=== PATIENT | male | born 1945 | race Caucasian/White ===

== ENCOUNTER → 2018-04-09 | Outpatient (CLI) | payer MEDICARE | END | disposition home or self-care (01) | LOC: SHCH 08:50 | PROVIDERS: ATTEND Internal Medicine Cardiovascular Disease | DX: I25.10 Atherosclerotic heart disease of native coronary artery without angina pectoris (principal) | CPT/HCPCS: 93880 ==

== ENCOUNTER → 2020-06-09 | Outpatient (CLI) | payer MEDICARE | END | disposition home or self-care (01) | LOC: SHCH 09:30 | PROVIDERS: ATTEND Internal Medicine Cardiovascular Disease | DX: I65.23 Occlusion and stenosis of bilateral carotid arteries (principal); I25.10 Atherosclerotic heart disease of native coronary artery without angina pectoris | CPT/HCPCS: 93880 ==

== ENCOUNTER 2020-12-11 13:00 | Observation (INO) | payer MEDICARE ==
[~2020-12-11] VITALS: Ht 185.4 cm; Wt 106.1 kg
[2020-12-11 11:46] LABS: BASOPHILS % (AUTO) 0.9 % (0.0-5.0); EOSINOPHILS % (AUTO) 3.1 % (0.0-8.0); HEMATOCRIT 41.4 % (42-54); LYMPHOCYTES % (AUTO) 11.7 % (21.0-51.0); MEAN CORPUSCULAR HEMOGLOBIN 30.7 pg (27.0-33.0); MEAN CORPUSCULAR HGB CONC 32.4 g/dL (32.0-36.0); MONOCYTES % (AUTO) 8.7 % (3.0-13.0); NEUTROPHILS % (AUTO) 74.7 % (40.0-77.0); PLATELET COUNT (AUTO) 207 K/uL (130-400); RED BLOOD CELL COUNT(AUTO) 4.36 MIL/uL (4.50-6.20); WHITE BLOOD COUNT (AUTO) 9.2 K/uL (4.8-10.8)
[2020-12-11 11:51] LABS: CREATININE 1.6 mg/dL (0.5-1.5); POTASSIUM 4.9 mmol/L (3.5-5.1)
[2020-12-15 08:48] VITALS: BP 125/68
[2020-12-15] MEDS ORDERED: CLON0.1T PO (09:41)
[2020-12-15] MEDS ORDERED: LOSA100T58 PO (09:41)
[2020-12-15] MEDS ORDERED: PRED10TA3 PO (09:41)
[2020-12-15] MEDS ORDERED: PANTOPRAZOLE PO (09:41)
[2020-12-15] MEDS ORDERED: LIRA0.6P SQ (09:41)
[2020-12-15] MEDS ORDERED: LABE100T5 PO (09:41)
[2020-12-15] MEDS ORDERED: HYDR-4060 PO (09:41)
[2020-12-15] MEDS ORDERED: TRAM50TA4 PO (09:41)
[2020-12-15] MEDS ORDERED: INSU100V37 SQ (09:41)
[2020-12-15] MEDS ORDERED: ASPIRIN PO (09:41)
[2020-12-15] MEDS ORDERED: AEC81 PO (09:41)
[2020-12-16] VITALS (28 sets, daily range): BP systolic 97–144; BP diastolic 49–83
[2020-12-16] MEDS: CLINDAMYCIN IVPB 900MG/50ML 50 ML IV SCH ×2 (06:00→07:55)
[2020-12-16] MEDS ORDERED: 0.9%NACL 1000ML 1,000 ML IV ONE (06:09)
[2020-12-16] MEDS ORDERED: THROMBIN-JMI 20000 UNIT KIT TP ONE (06:35)
[2020-12-16] MEDS ORDERED: CLINDAMYCIN 900MG/6ML INJ ONE ×2 (06:38→10:43)
[2020-12-16] MEDS ORDERED: SUCCINYLCHOLINE CHLORIDE 20 MG/ML 10 ML VIAL ONE (06:47)
[2020-12-16] MEDS ORDERED: LIDOCAINE PF 100MG/5ML (2%) SYRINGE 5ML ONE (06:47)
[2020-12-16] MEDS ORDERED: DEXAMETHASONE SOD PHOSPHATE 10MG/ML 1ML VIAL ONE ×2 (06:48→06:55)
[2020-12-16] MEDS ORDERED: ONDANSETRON 4MG INJ ONE (06:48)
[2020-12-16] MEDS ORDERED: PROPOFOL 10 MG/ML 20ML VIAL IV ONE (06:48)
[2020-12-16] MEDS ORDERED: NEOSTIGMINE 5MG/5ML SYR IV ONE (06:48)
[2020-12-16] MEDS ORDERED: GLYCOPYRROLATE 1 MG/5 ML SYRINGE ONE (06:48)
[2020-12-16] MEDS ORDERED: ROCURONIUM 10MG/1ML SYR 10 MG/ML ML ONE ×2 (06:48→09:00)
[2020-12-16] MEDS ORDERED: FENTANYL CITRATE PF 50 MCG/1 ML 2ML VIAL ONE (06:51)
[2020-12-16] MEDS ORDERED: MIDAZOLAM HCL 1 MG/ML 2ML VIAL ONE (06:57)
[2020-12-16] MEDS: BUPIVACAINE/EPI/PF 0.25% 30ML VIAL IJ SCH ×3 (07:00→18:13)
[2020-12-16] MEDS ORDERED: MORPHINE PF 100MG/10ML AMP IV ONE (07:23)
[2020-12-16] MEDS ORDERED: EPHEDRINE SULFATE 50 MG/ML AMPULE ONE (07:28)
[2020-12-16] MEDS ORDERED: HYDRALAZINE 20MG/ML VIAL ONE (11:26)
[2020-12-16] MEDS ORDERED: CLINDAMYCIN IVPB 900MG/50ML 50 ML IV SCH (12:00)
[2020-12-16] MEDS: PREDNISONE 10 MG TABLET PO SCH (12:00)
[2020-12-16] MEDS: DEXAMETHASONE SOD PHOSPHATE 4 MG/ML 1ML VIAL IVP SCH ×3 (12:00→23:30)
[2020-12-16] MEDS ORDERED: TRAMADOL HCL 50 MG TABLET PO PRN ×2 (12:00→12:30)
[2020-12-16] MEDS ORDERED: HYDROCODONE/ACETAMINOPHEN 5/325 MG TAB PO PRN (12:00)
[2020-12-16] MEDS ORDERED: 0.9%NACL 10ML VIAL IVP PRN (12:00)
[2020-12-16] MEDS ORDERED: CLONIDINE HCL 0.1 MG TABLET PO PRN (12:00)
[2020-12-16] MEDS ORDERED: LACTATED RINGERS 1000ML 1,000 ML IV SCH (12:00)
[2020-12-16] MEDS ORDERED: PROMETHAZINE HCL 25 MG/ML 1ML AMPULE IM PRN (12:00)
[2020-12-16] MEDS ORDERED: MEPERIDINE-PF 25 MG/ML SYG ONE ×2 (12:15→12:24)
[2020-12-16] MEDS ORDERED: DEXTROSE 50%-WATER 50 ML DISP.SYRIN IV PRN ×2 (18:30)
[2020-12-16] MEDS ORDERED: GLUCAGON 1MG KIT 1 MG ML IM PRN ×2 (18:30)
[2020-12-16] MEDS: LABETALOL HCL 100 MG TABLET PO SCH (20:10)
[2020-12-16] MEDS: INSULIN HUMULIN R 100 UNIT/ML 3ML SQ SCH (20:50)
[2020-12-16] MEDS ORDERED: INSULIN HUMULIN R 100 UNIT/ML 3ML SQ SCH (21:00)
[2020-12-16] MEDS: MORPHINE 2 MG SYG IVP PRN (23:38)
[2020-12-17] VITALS: BP 123/53
[2020-12-17] MEDS: MORPHINE 2 MG SYG IVP PRN ×2 (02:05→05:04)
[2020-12-17 04:00] VITALS: BP 128/65
[2020-12-17] MEDS: DEXAMETHASONE SOD PHOSPHATE 4 MG/ML 1ML VIAL IVP SCH ×2 (05:04→10:56)
[2020-12-17] MEDS: INSULIN HUMULIN R 100 UNIT/ML 3ML SQ SCH ×2 (05:25→10:56)
[2020-12-17] MEDS: HYDROCODONE/ACETAMINOPHEN 5/325 MG TAB PO PRN ×2 (06:33→09:30)
[2020-12-17] MEDS ORDERED: ASPIRIN PO SCH (08:00)
[2020-12-17 08:16] VITALS: BP 133/70
[2020-12-17] MEDS ORDERED: TRESIBA 20 UNIT SQ SCH (09:00)
[2020-12-17] MEDS ORDERED: [UNRECOGNIZED DRUG - OTHER] SQ SCH (09:00)
[2020-12-17] MEDS ORDERED: VICTOZA SQ SCH (09:00)
[2020-12-17] MEDS ORDERED: ASPIRIN 81 MG EC TAB PO SCH (09:00)
[2020-12-17] MEDS ORDERED: LOSARTAN 100 MG TABLET PO SCH (09:00)
[2020-12-17] MEDS: LABETALOL HCL 100 MG TABLET PO SCH (09:28)
[2020-12-17] MEDS: PREDNISONE 10 MG TABLET PO SCH (10:56)
[2020-12-17 11:04] VITALS: BP 118/62
[2020-12-17] MEDS ORDERED: PANTOPRAZOLE 40 MG TAB DR PO SCH (12:00)
== END 2020-12-17 12:50 | disposition home or self-care (01) ==
LOC: EDSTATUS 13:00 → DAHIP 12-16 05:33 → 4BH 12-16 12:58
PROVIDERS: ADMIT Neurological Surgery; ATTEND Neurological Surgery
DX: M48.061 Spinal stenosis, lumbar region without neurogenic claudication (principal); Z20.822 Contact with and (suspected) exposure to COVID-19; E11.9 Type 2 diabetes mellitus without complications; I87.2 Venous insufficiency (chronic) (peripheral); L98.9 Disorder of the skin and subcutaneous tissue, unspecified; Z79.52 Long term (current) use of systemic steroids; Z95.1 Presence of aortocoronary bypass graft; Z79.82 Long term (current) use of aspirin
CPT/HCPCS: 36415; 63047; 63048 ×3; 72020; 80048; 82948 ×6; 85025; 87635; 96361; 96374; 96375; 96376 ×2; A4215; A4216; A4221; A4222; A4223 ×2; A4344; A4510; A4600; A4649 ×3; A4663; G0378 ×25; J0330; J0360; J1100 ×5; J1815 ×2; J2001; J2175 ×2; J2250; J2274; J2405; J2704; J2710; J3010; J3490 ×4; J7030 ×2; J7040

== ENCOUNTER → 2024-01-02 | Outpatient (CLI) | payer MEDICARE ==
[~2024-01-02] MED LIST: AEC81 PO; CLON0.1T PO; GABA-529 PO; HYDR-4060 PO; INSU100V37 SQ; LABE100T7 PO; LIRA0.6P SQ; LOSA100T59 PO; METO-408 PO; PANTOPRAZOLE PO; PRED10TA3 PO; TRAM50TA4 PO; VALS320T16 PO
== END | disposition home or self-care (01) ==
LOC: SHCH 13:59
PROVIDERS: ATTEND Internal Medicine Cardiovascular Disease
DX: I65.23 Occlusion and stenosis of bilateral carotid arteries (principal); I08.3 Combined rheumatic disorders of mitral, aortic and tricuspid valves; I74.9 Embolism and thrombosis of unspecified artery; Z95.0 Presence of cardiac pacemaker
CPT/HCPCS: 93306; 93880

== ENCOUNTER → 2024-01-10 | Outpatient (CLI) | payer MEDICARE ==
[~2024-01-10] MED LIST changes: +ASPI-1443 PO; +CLOP-31 PO; -HYDR-4060 PO; -LABE100T7 PO; -LIRA0.6P SQ; -LOSA100T59 PO; -PANTOPRAZOLE PO; -PRED10TA3 PO
[2024-01-10 12:07] LABS: BASOPHILS # (AUTO) 0.05 K/uL (0.00-0.20); BASOPHILS % (AUTO) 0.4 % (0.0-5.0); EOSINOPHILS # (AUTO) 0.15 K/uL (0.00-0.70); EOSINOPHILS % (AUTO) 1.3 % (0.0-8.0); IMMATURE GRANULOCYTE ABSOLUTE 0.11 K/uL (0-1); LYMPHOCYTES # (AUTO) 1.1 K/uL (1.0-4.8); LYMPHOCYTES % (AUTO) 9.7 % (21.0-51.0); MEAN CORPUSCULAR HGB CONC 32.7 g/dL (32.0-36.0); MEAN CORPUSCULAR VOLUME 91.9 fL (79-99); MONOCYTES # (AUTO) 0.8 K/uL (0.1-1.0); MONOCYTES % (AUTO) 7.4 % (3.0-13.0); NEUTROPHILS # (AUTO) 9.1 K/uL (1.8-7.7); NEUTROPHILS % (AUTO) 80.2 % (40.0-77.0); PLATELET COUNT (AUTO) 182 K/uL (130-400); RED BLOOD CELL COUNT(AUTO) 4.46 MIL/uL (4.50-6.20); WHITE BLOOD COUNT (AUTO) 11.4 K/uL (4.8-10.8)
[2024-01-10 12:26] LABS: ALBUMIN 3.4 g/dL (3.5-5.0); BILIRUBIN,TOTAL 0.4 mg/dL (0.2-1.0); CREATININE 1.6 mg/dL (0.5-1.3); POTASSIUM 5.5 mmol/L (3.5-5.1); TOTAL PROTEIN, SERUM 6.3 g/dL (6.0-8.3)
== END | disposition home or self-care (01) ==
LOC: LAB 10:31
PROVIDERS: ATTEND Internal Medicine Cardiovascular Disease
DX: I65.22 Occlusion and stenosis of left carotid artery (principal)
CPT/HCPCS: 36415; 80053; 85025